=== PATIENT | female | born 1985 | race Caucasian/White ===

== ENCOUNTER 2019-03-14 11:09 | Observation (INO) | payer OTHER ==
[2019-03-14 12:01] LABS: PLATELET COUNT 236 10^3/uL (150-400)
--- NOTE | 2019-03-14 13:36 | OBPROG ---
Labor Progress Note Assessment/Plan: Assessment: 34 y/o G10 @ 38 6/7 weeks with labile BP, normal labs and elevated P:C Plan: I had an extensive discussion with patient and her about the criteria for Gestational HTN vs pre eclampsia and IOL. Her BP are overall normal as are her symptoms and labs. We have one objective elevated DBP from the office and 2 from 2 weeks of home measurements, but no elevated systolic measurements. She has a very unfavorable Perales's score and would be likely long and difficult IOL. I feel comfortable allowing pt to d/c home now to continue to monitor BP and symptoms. She knows to call over the weekend for any concerns. Follow-up @ [facility] on Sunday. 03/14/19 13:37 Subjective/Intrapartum Course: 03/14/19 13:31 Pt sent from the office to evaluate BP and labs for Gestational HTN or pre eclampsia. She denies ALMEIDA, scotomata, visual changes, RUQ pain. She has good FM , and min cramping, contractions. She has been monitoring her BP at home. Objective: 03/14/19 11:45 03/14/19 11:45 Uric Acid 4.1 mg/dL (2.5-6.8) 03/14/19 11:45 Total Bilirubin 0.4 mg/dL (0.1-1.4) 03/14/19 11:45 Conjugated Bilirubin 0.0 mg/dL (0.0-0.5) 03/14/19 11:45 Unconjugated Bilirubin 0.4 mg/dL (0.0-1.1) 03/14/19 11:45 AST 18 IU/L (14-46) 03/14/19 11:45 ALT 24 IU/L (9-52) 03/14/19 11:45 Lactate Dehydrogenase 386 IU/L (313-618) 03/14/19 11:45 BP here 111/67, 118/75, 117/68, 118/70, 120/72, One BP in the clinic immediately after cervical check 130/90 She has had 2 diastolic measurements at home 90's, no systolic BP > 130 - SVE Dilation (cm): 0 Effacement (%): Less than 50 Station: -3 Membranes: Intact - Contraction Pattern Assessment Current Contraction Pattern: Other (Specify) (none) - FHR Assessment Acevedo FHR (bpm): 130 FHR Pattern Variability: Moderate FHR Category: 1 - AP Antepartum Course: 03/14/19 13:36 + CF carrier, is negative some elevated BP 130/80 and P:C ratio > 0.3 Oxytocin Orders Assessment - Pre-Induction/Augmentation Assessment Gestational Age: 38 week(s) and 6 day(s) ICD10 Worksheet Patient Problems: Problems Problem Status Onset Elevated BP without diagnosis of hypertension Acute - ICD10 Problem Qualifiers (1) Elevated BP without diagnosis of hypertension
== END 2019-03-14 13:00 | disposition home or self-care (01) ==
LOC: FLD 11:09
PROVIDERS: ADMIT Obstetrics & Gynecology; ATTEND Obstetrics & Gynecology
DX: O26.893 Other specified pregnancy related conditions, third trimester (principal); R03.0 Elevated blood-pressure reading, without diagnosis of hypertension; Z3A.38 38 weeks gestation of pregnancy

== ENCOUNTER 2019-03-24 18:05 | Inpatient (IN) | payer OTHER ==
[2019-03-24] MEDS ORDERED: LIDOCAINE 1% 300 MG/30 ML SDV SC PRN (18:32)
[2019-03-24] MEDS ORDERED: EPSOM SALT 454 GM TP PRN (18:32)
[2019-03-24] MEDS ORDERED: IBUPROFEN 600 MG TAB PO PRN (18:32)
[2019-03-24] MEDS ORDERED: OXYTOCIN/RINGERS LACTATE 1,000 ML IV PRN (18:32)
[2019-03-24] MEDS ORDERED: AMMONIA AROMATIC 1 EACH AMP IH PRN (18:32)
[2019-03-24] MEDS ORDERED: TERBUTALINE SULFATE 1 MG/ML VIAL IV PRN (18:32)
[2019-03-24] MEDS ORDERED: OLIVE OIL 118 ML BTL MISC PRN (18:32)
[2019-03-24] MEDS ORDERED: LR 1,000 ML IV PRN (18:32)
[2019-03-24] MEDS ORDERED: MISOPROSTOL 200 MCG TAB PO PRN (18:32)
--- NOTE | 2019-03-24 19:38 | GHP ---
[f rep st] PREOP HISTORY AND PHYSICAL DATE OF ADMISSION: 03/24/2019 This is an admission history and physical Ms Katharine Blair 3 minute was documented perez dictating date of admission and dictation is 03/24/2019. ADMITTING DIAGNOSIS: Intrauterine at 40 and 2/7 weeks' gestation with spontaneous rupture of membranes and prodromal labor. HISTORY OF PRESENT ILLNESS: Katharine is a 34-year-old, 1, para 0, with a last menstrual period of 06/15/18 and EDC of 03/22/2019, confirmed by an 8- week ultrasound. She has had good care at [facility] since registration at 8 weeks' gestation. She has had a relatively uncomplicated course. She had an episode of slightly elevated blood pressures in the 130s over 80s on a couple occasions at home at 38 and 6. However, labs were negative, she was asymptomatic. And followup blood pressures have been stable. Blood pressure today is 130/80. She had a routine examination in the office by Dr. Mejia and she was found to be 1 cm, 80%, -2 and cephalic. He performed membrane sweep and patient felt a gush of fluid afterwards, which has continued over the last several hours. That examination was at approximately 2: 15 this afternoon. She has had multiple gushes of fluid soaking multiple pads with clear fluid. She has had increased cramping and some contractions since then, but no active labor contractions. PHYSICAL EXAMINATION: Today, blood pressure again is 130s over 80s. heart tones are 140s and reactive, moderate variability, category 1. She has irritable contractions maybe every 6 minutes. Cervix is 1, 80%, -2, cephalic and she is grossly ruptured. OTHER RISK FACTORS: She was found to be a CF carrier. Father of the baby is negative, and she had a small abnormality on her left ovary hypoechoic area. She does have a history of a dermoid removal on that side, and it has been followed and has been stable. Other than that, normal ultrasounds in this , normal laboratory evaluation, and she has progressed to 40 and 2/7 weeks. PAST OBSTETRICAL HISTORY: The patient is G1, P0. First . PAST GYNECOLOGICAL HISTORY: Menarche age 14. Irregular intervals. LMP of June 15, 2018. She did have a left dermoid cyst removed in 2014, laparoscopically. She had 1 abnormal Pap. Followups have been negative. No other history of any STDs or any gynecological problems. PAST MEDICAL HISTORY: Nonsignificant. No issues. SURGICAL HISTORY: Laparoscopic left ovarian dermoid cyst removal. That is all. ALLERGIES: She has no known drug allergies. MEDICATIONS: Include vitamins and DHA. LABORATORY DATA: She is A positive, antibody negative, RPR nonreactive, rubella immune, hepatitis negative, HIV negative. Again, cystic fibrosis carrier. Father of the baby is negative. Urine drug screen was negative. Pap was normal. Negative HPV. A urine culture was negative. Gonorrhea and chlamydia negative. Verify was negative. AFP was negative. One-hour GTT 115. GBS was negative. Varicella was immune. Parvovirus was checked and she is nonimmune. SOCIAL HISTORY: She is . She lives with her , Edgar. 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 She denies tobacco, alcohol, or drug use. FAMILY HISTORY: Sister has colitis. Maternal aunt had a brain tumor and a stroke. Father has heart disease. Maternal grandmother had cervical or uterine cancer. Maternal grandfather had Parkinson disease and Alzheimer's. OBJECTIVE: Today, blood pressures are stable. heart tones are 130s, reactive, moderate variability, category 1. She is odalis irregularly. Cervical exam was 1, 80%, -2 cephalic, grossly ruptured. ASSESSMENT AND PLAN: A 34-year-old, 1, para 0, at 40-2/7 weeks gestation with spontaneous rupture of membranes. We discussed a plan for cervical ripening and we will do oral Cytotec for cervical ripening and likely start Pitocin when her Perales score is more favorable, or she may kick into labor on her own. status is reassuring. We will do a set of PIH labs because of her history of some elevated blood pressures. GBS is negative. /[id number]/MODL MTDD
[2019-03-24 19:48] LABS: PLATELET COUNT 268 10^3/uL (150-400)
[2019-03-24] MEDS: MISOPROSTOL 50 MCG CAP PO SCH (21:57)
[2019-03-24] MEDS ORDERED: AMMONIA AROMATIC 1 EACH AMP IH ONE (22:26)
[2019-03-24] MEDS ORDERED: TERBUTALINE SULFATE 1 MG/ML VIAL ONE (22:26)
[2019-03-24] MEDS ORDERED: LIDOCAINE 1% 300 MG/30 ML SDV ONE (22:26)
[2019-03-24] MEDS ORDERED: OLIVE OIL 118 ML BTL MISC ONE (22:26)
[2019-03-24] MEDS ORDERED: OXYTOCIN 10 UNIT/ML VIAL ONE (22:26)
[2019-03-24] MEDS ORDERED: MISOPROSTOL 200 MCG TAB ONE (22:26)
[2019-03-25] MEDS: MISOPROSTOL 50 MCG CAP PO SCH ×3 (02:14→17:27)
[2019-03-25] MEDS ORDERED: fentaNYL 2MCG/ML/BUP 0.1% RTU 100 ML BAG EP ONE (03:44)
[2019-03-25] MEDS ORDERED: BUPIVACAINE 0.25% 10 ML SDV ONE (03:44)
[2019-03-25] MEDS ORDERED: PHENYLEPHRINE HCL 100 MCG/ML SYR ONE (03:44)
[2019-03-25] MEDS ORDERED: NALOXONE HCL 0.4 MG/ML INJ IVP PRN (04:14)
[2019-03-25] MEDS ORDERED: ONDANSETRON 4 MG/2 ML VIAL IVP PRN (04:14)
--- NOTE | 2019-03-25 04:17 | PREANESOB ---
Obstetric Pre-Anesthesia Info - General Info Proposed Procedure: cynthia : 1 Para: 0 MARGARITO: 03/22/19 Gestational Age: 40 week(s) and 2 day(s) - Info Status: Full Term FHR Pattern: Reassuring - Labor Status Labor Epidural: Proposed Anesthesia Allergies/Adverse Reactions: Allergy/AdvReac Type Severity Reaction Status Date / Time peanut Allergy Verified 03/24/19 18:35 Visit Medications: Generic Name Dose Route Start Last Admin Trade Name Freq PRN Reason Stop Dose Admin Ammonia (Aromatic Spirit) 1 each 03/24/19 18:32 Ammonia Aromatic IH 04/03/19 18:31 ONCE PRN Fainting Diphenhydramine HCl 25 - 50 mg 03/25/19 04:14 Benadryl Injection IVP 09/21/19 04:13 Q6HRS PRN Itching Lactated Ringer's 1,000 mls @ 0 mls/hr 03/24/19 18:32 Lr IV 03/25/19 18:31 PRN PRN SEE PROTOCOL CONDITIONS Protocol Per Protocol Oxytocin/Lactated Ringer's 1,000 mls @ 0 mls/hr 03/24/19 18:32 Pitocin 20 Units/Lr (Premix) IV PRN PRN Post bleeding As Directed Fentanyl/Bupivacaine HCl 100 mls @ 0 mls/hr 03/25/19 04:30 Fentanyl/Bupivacaine/Ns 2 Mcg/Ml 0.1% (Premix EP 04/04/19 04:29 CONT DUSTIN Protocol As Directed Lactated Ringer's 500 mls @ 0 mls/hr 03/25/19 04:30 Lr IV 09/21/19 04:29 CONT DUSTIN As Directed Ibuprofen 600 mg 03/24/19 18:32 Motrin PO ONCE PRN post , pain Lidocaine HCl 300 mg 03/24/19 18:32 Lidocaine Hcl 1% SC 09/20/19 18:31 ONCE PRN episiotomy Magnesium Sulfate 454 gm 03/24/19 18:32 Epsom Salt TP 09/20/19 18:31 Q1H PRN perineal discomfort Misoprostol 800 - 1,000 mcg 03/24/19 18:32 Cytotec PO 09/20/19 18:31 ONCE PRN Vaginal Atony/Bleeding Misoprostol 50 mcg 03/24/19 22:00 03/25/19 02:14 Cytotec PO 09/20/19 21:59 50 mcg Q4 DUSTIN Administration Naloxone HCl 0.4 mg 03/25/19 04:14 Narcan IVP 09/21/19 04:13 PRN PRN Respiratory depression [place] Oil 118 ml 03/24/19 18:32 Sweet Oil MISC 09/20/19 18:31 ONCE PRN perineal massage Ondansetron HCl 4 mg 03/25/19 04:14 Zofran IVP 03/26/19 04:13 Q4HRS PRN Nausea/Vomiting, Can't Take PO Terbutaline Sulfate 0.25 mg 03/24/19 18:32 Brethine IV 09/20/19 18:31 ONCE PRN Tachysystole Discontinued Medications Generic Name Dose Route Start Last Admin Trade Name Freq PRN Reason Stop Dose Admin Ammonia (Aromatic Spirit) Confirm 03/24/19 22:26 Ammonia Aromatic Administered 03/24/19 22:27 Dose 1 each IH .STK-MED ONE Bupivacaine HCl Confirm 03/25/19 03:44 Sensorcaine 0.25% Sdv Administered 03/25/19 03:45 Dose 10 ml .ROUTE .STK-MED ONE Fentanyl/Bupivacaine HCl Confirm 03/25/19 03:44 Fentanyl/Bupivacaine/Ns 2 Mcg/Ml 0.1% (Premix Administered 03/25/19 03:45 Dose 100 ml EP .STK-MED ONE Lidocaine HCl Confirm 03/24/19 22:26 Lidocaine Hcl 1% Administered 03/24/19 22:27 Dose 300 mg .ROUTE .STK-MED ONE Misoprostol Confirm 03/24/19 22:26 Cytotec Administered 03/24/19 22:27 Dose 1,000 mcg .ROUTE .STK-MED ONE [place] Oil Confirm 03/24/19 22:26 Sweet Oil Administered 03/24/19 22:27 Dose 118 ml MISC .STK-MED ONE Oxytocin Confirm 03/24/19 22:26 Pitocin Administered 03/24/19 22:27 Dose 40 unit .ROUTE .STK-MED ONE Phenylephrine HCl Confirm 03/25/19 03:44 Neosynephrine Administered 03/25/19 03:45 Dose 1,000 mcg .ROUTE .STK-MED ONE Terbutaline Sulfate Confirm 03/24/19 22:26 Brethine Administered 03/24/19 22:27 Dose 1 mg .ROUTE .STK-MED ONE - Anesthesia History Response to Local Anesthetics: Normal Anesthesia & Operative History: No Prior Problems Family Anesthesia History: Negative - Vital Signs Height/Weight (Nursing): Height 170.18 cm Weight 96.615 kg - Focused Exam Neck exam: FROM Mallampati Score: Class 2 Mouth exam: normal dental/mouth exam Pulmonary: no respiratory distress Cardiovascular: regular rate and rhythym Labs: 03/24/19 19:25 Patient ABO/Rh A POSITIVE 03/24/19 19:25 - Plan Consent Signed and on Chart: Yes Patient/Guardian Understands and Agrees to Plan: Yes Urgent/Emergent Case: Alexys edwards completed preop but documented later for safe timely pt care
[2019-03-25] MEDS ORDERED: LR 500 ML IV SCH (04:30)
[2019-03-25] MEDS ORDERED: fentaNYL 2MCG/ML/BUP 0.1% RTU 100 ML EP SCH (04:30)
[2019-03-25] MEDS ORDERED: ACETAMINOPHEN 500 MG TAB ONE (08:41)
[2019-03-25] MEDS ORDERED: ACETAMINOPHEN 500 MG TAB PO ONE (08:56)
--- NOTE | 2019-03-25 09:54 | OBPROG ---
Labor Progress Note Assessment/Plan: Assessment: IUP at 40w3d SROM 14:15 on 03/24 GBS - FARHANA, s/p cervical ripening with cytotec -last dose 6a Plan: will begin pit at 10a 03/25/19 09:40 Subjective/Intrapartum Course: 03/25/19 09:43 Pt comfortable with FARHANA. Disc with pt/Edgar about plan for today. Excited about exam 4/100/0. Disc possible cord compression with length of time with ROM - less fluid now and slightly blood tinged. Low grade temp spont decreased but given 1 gm Tylenol. Objective: 03/24/19 19:25 Patient ABO/Rh A POSITIVE 03/24/19 19:25 - SVE Dilation (cm): 4 Effacement (%): 100 Station: 0 Membranes: SROM (at 14:15) Amniotic Fluid Color: Clear (blood tinged) - Contraction Pattern Assessment Current Contraction Pattern: Irregular (q 3-6 min) - FHR Assessment Acevedo FHR (bpm): 130 FHR Pattern Variability: Moderate FHR Category: 1 - AP Antepartum Course: 03/25/19 09:55 mild elev B/P 130/80-90 at 37w6, eval labs all neg, p/c .4. PNC otherwise uncompl Oxytocin Orders Assessment - Pre-Induction/Augmentation Assessment Gestational Age: 40 week(s) and 2 day(s) ICD10 Worksheet Patient Problems: Problems Problem Status Onset Delayed delivery after SROM (spontaneous rupture of membranes) Acute Elevated BP without diagnosis of hypertension Acute - ICD10 Problem Qualifiers (1) Delayed delivery after SROM (spontaneous rupture of membranes) (2) Elevated BP without diagnosis of hypertension
[2019-03-25] MEDS ORDERED: OXYTOCIN/RINGERS LACTATE 500 ML IV SCH (10:00)
[2019-03-25] MEDS ORDERED: LR 500 ML IV PRN (10:00)
--- NOTE | 2019-03-25 12:13 | OBPROG ---
Labor Progress Note Assessment/Plan: Assessment: IUP at 40w3d SROM 14:15 on 03/24 GBS - FARHANA, now on pit at 3 mu/min variables notedd Plan: pitocin, and now with IUPC for amnioinfusion 03/25/19 09:40 03/25/19 12:00 Subjective/Intrapartum Course: 03/25/19 09:43 Pt comfortable with FARHANA. Disc with pt/Edgar about plan for today. Excited about exam 4/100/0. Disc possible cord compression with length of time with ROM - less fluid now and slightly blood tinged. Low grade temp spont decreased but given 1 gm Tylenol. 03/25/19 12:13 Pt comfortable and resting. No pressure but hits FARHANA button about 30 min. Disc IUPC and pt/husb agree. Disc some variables and likely low fluid contributing. IUPC placed without prob and cx 5-6/100/0. will begin amnioinfusion but just shifting to right side also helped. 03/25/19 12:15 Objective: 03/24/19 19:25 Patient ABO/Rh A POSITIVE 03/24/19 19:25 - SVE Dilation (cm): 5 (5-6) Effacement (%): 100 Station: 0 Membranes: SROM (at 14:15) Amniotic Fluid Color: Clear (blood tinged) - Contraction Pattern Assessment Current Contraction Pattern: Regular (q 2-3 min on pit 3 mu/min, after IUPC ctxns appear adeq) - FHR Assessment Acevedo FHR (bpm): 130 FHR Pattern Variability: Moderate FHR Category: 1 (currently cat I but was II with variables - still with good variability 20 min ago) - Procedures Non-surgical Procedures: IUPC (placed without probs. Needed to break forebag) - AP Antepartum Course: 03/25/19 09:55 mild elev B/P 130/80-90 at 37w6, eval labs all neg, p/c .4. PNC otherwise uncompl Oxytocin Orders Assessment - Pre-Induction/Augmentation Assessment Gestational Age: 40 week(s) and 2 day(s) ICD10 Worksheet Patient Problems: Problems Problem Status Onset Delayed delivery after SROM (spontaneous rupture of membranes) Acute - ICD10 Problem Qualifiers (1) Delayed delivery after SROM (spontaneous rupture of membranes)
--- NOTE | 2019-03-25 15:31 | OBDEL ---
Info Type: Vaginal Presentation at Delivery: Vertex L&D Analgesia/Anesthesia Type: Epidural GBS+: No Intrapartum Medications: Generic Name Dose Route Start Last Admin Trade Name Freq PRN Reason Stop Dose Admin Fentanyl/Bupivacaine HCl 100 mls @ 0 mls/hr 03/25/19 04:30 03/25/19 10:48 Fentanyl/Bupivacaine/Ns 2 Mcg/Ml 0.1% (Premix EP 04/04/19 04:29 100 mls CONT DUSTIN Administration Protocol As Directed Oxytocin/Lactated Ringer's 500 mls @ 0 mls/hr 03/25/19 10:00 03/25/19 10:14 Pitocin 30 Units/Lr (Premix) IV 09/21/19 09:59 500 mls CONT DUSTIN Administration Protocol Per Protocol Misoprostol 50 mcg 03/24/19 22:00 03/25/19 06:07 Cytotec PO 09/20/19 21:59 50 mcg Q4 DUSTIN Administration Discontinued Medications Generic Name Dose Route Start Last Admin Trade Name Freq PRN Reason Stop Dose Admin Acetaminophen 1,000 mg 03/25/19 08:56 03/25/19 09:00 Tylenol PO 03/25/19 08:57 1,000 mg ONCE ONE Administration - Hospital Course Intrapartum: 03/25/19 09:43 Pt comfortable with FARHANA. Disc with pt/Edgar about plan for today. Excited about exam 4/100/0. Disc possible cord compression with length of time with ROM - less fluid now and slightly blood tinged. Low grade temp spont decreased but given 1 gm Tylenol. 03/25/19 12:13 Pt comfortable and resting. No pressure but hits FARHANA button about 30 min. Disc IUPC and pt/husb agree. Disc some variables and likely low fluid contributing. IUPC placed without prob and cx 5-6/100/0. will begin amnioinfusion but just shifting to right side also helped. 03/25/19 12:15 Indications for Delivery: SROM Vaginal Delivery - Delivery Provider Delivery Physician/CNM: Manuela Torres - Labor and Delivery Onset of Contractions Date: 03/24/19 Onset of Contractions Time: 22:30 Onset of Contractions Type: Augmented Rupture of Membranes Date: 03/24/19 Rupture of Membranes Time: 14:15 Rupture of Membranes Type: Spontaneous Amniotic Fluid Color: Clear (blood tinged) Dilation Complete Date: 03/25/19 Dilation Complete Time: 14:05 Placenta Delivery Date: 03/25/19 Placenta Delivery Time: 15:05 Total Hours of Labor: 16 Non-surgical Procedures: IUPC (placed without probs. Needed to break forebag) Laceration: 1st Degree (right hymenal) Repair: Other (Specify) (none needed) Vaginal Sponge Count Correct: Yes Vaginal Needle Count Correct: Yes Vaginal Sweep Performed: Yes EBL: 400 Delivery Events: Nuchal Cord (x1 tight and cut on perineum) - Medications Labor Augmentation/Induction Methods Used: Pitocin, Prostin (cytotec 50 mcg through night.) Labor Augmentation/Induction Indication: Inadequate Contraction Frequency, Inadequate Contraction Strength Data MARGARITO: 03/22/19 Gestational Age: 40 week(s) and 3 day(s) Acevedo Delivery Date: 03/25/19 Delivery Time: 14:55 Sex of : Male (Sarah Ness) Score (1 Min): 8 Score (5 Min): 8 ICD10 Worksheet Patient Problems: Problems Problem Status Onset (spontaneous vaginal delivery) Acute Delayed delivery after SROM (spontaneous rupture of membranes) Acute - ICD10 Problem Qualifiers (1) Delayed delivery after SROM (spontaneous rupture of membranes)
[2019-03-25] MEDS: ACETAMINOPHEN 325 MG TAB PO PRN (21:18)
[2019-03-25] MEDS: IBUPROFEN 600 MG TAB PO PRN (21:19)
[2019-03-26] MEDS: IBUPROFEN 600 MG TAB PO PRN ×3 (05:05→18:29)
[2019-03-26] MEDS: ACETAMINOPHEN 325 MG TAB PO PRN ×3 (05:06→18:29)
--- NOTE | 2019-03-26 14:00 | OBPP ---
Progress Note Assessment/Plan: Assessment: ppd# 1 s/p rh+/RI breast feeding uncomplicated post course Plan: 03/26/19 13:57 Subjective/ Course: 03/26/19 13:58 patient is doing well. pain is well controlled. normal lochia. denies headache and changes in vision. breast feeding is going well. no concerns. blood pressures stable. Objective: 03/26/19 06:05 Patient ABO/Rh A POSITIVE 03/24/19 19:25 Temp Pulse Resp BP Pulse Ox 36.5 C 88 16 119/84 H 03/26/19 08:00 03/26/19 08:00 03/26/19 08:00 03/26/19 08:00 Physical Exam - Physical Exam Neck: non-tender, full range of motion, supple Respiratory: chest non-tender, lungs clear, normal breath sounds Cardiac/Chest: normal peripheral pulses, regular rate, rhythm Abdomen: normal bowel sounds, non-tender, other (fundus firm and non tender) Extremities: normal range of motion, non-tender, normal inspection, normal capillary refill Skin: normal color, warm/dry Neuro/Psych: no motor/sensory deficits, alert, normal mood/affect, oriented x 3
[2019-03-27] MEDS: ACETAMINOPHEN 325 MG TAB PO PRN ×2 (00:33→06:19)
[2019-03-27] MEDS: IBUPROFEN 600 MG TAB PO PRN ×2 (00:34→06:19)
[2019-03-27 11:18] VITALS: BP 110/73
--- NOTE | 2019-03-27 14:37 | OBGCSDC ---
General Delivery Information - General Info : 1 Para: 1 Abortions: 0 Type: Vaginal L&D Analgesia/Anesthesia Type: Epidural Admission Date: 03/24/19 Labs: Patient ABO/Rh A POSITIVE 03/24/19 19:25 Hct 35.5 % (38.0-47.0) L 03/26/19 06:05 - Hospital Course Antepartum: 03/25/19 09:55 mild elev B/P 130/80-90 at 37w6, eval labs all neg, p/c .4. PNC otherwise uncompl Intrapartum: 03/25/19 09:43 Pt comfortable with FARHANA. Disc with pt/Edgar about plan for today. Excited about exam 4/100/0. Disc possible cord compression with length of time with ROM - less fluid now and slightly blood tinged. Low grade temp spont decreased but given 1 gm Tylenol. 03/25/19 12:13 Pt comfortable and resting. No pressure but hits FARHANA button about 30 min. Disc IUPC and pt/husb agree. Disc some variables and likely low fluid contributing. IUPC placed without prob and cx 5-6/100/0. will begin amnioinfusion but just shifting to right side also helped. 03/25/19 12:15 : 03/26/19 13:58 patient is doing well. pain is well controlled. normal lochia. denies headache and changes in vision. breast feeding is going well. no concerns. blood pressures stable. 03/27/19 14:38 S) Pt doing well, reports min pain and bleeding. she is ambulating and voiding without difficulty. She is . She desires discharge home today. O) VSS, afebrile constitutional: WNF, A&Ox3 HEENT: normocephalic, atraumatic, supple Heart: RRR, No murmur Chest: CTA-B Breasts: soft, nontender, not engorged, nipples normal/intact Abdomen: Soft, nontender Uterus: Firm at U-2 Lochia: Minimal rubra Perineum: Intact, healing well Extremities: Trace edema, and negative Kamla's sign Neuro: Grossly normal A) 34-year-old S/P PPD#2 P) Discharge home today Continue Pelvic rest x6wks Discussed danger signs (infection, preeclampsia, depression, heavy bleeding, etc ) RTO in 4/6 weeks Vaginal - Delivery Provider Delivery Physician/CNM: Manuela Torres - Diagnosis Labor: Augmented Rupture of Membranes Type: Spontaneous Amniotic Fluid Color: Clear (blood tinged) Laceration: 1st Degree (right hymenal) Repair: Other (Specify) (none needed) Delivery Events: Nuchal Cord (x1 tight and cut on perineum) - Procedures Non-surgical Procedures: IUPC (placed without probs. Needed to break forebag) - Delivery Non-surgical Procedures: IUPC (placed without probs. Needed to break forebag) EBL: 400 [place] Data MARGARITO: 03/22/19 Gestational Age: 40 week(s) and 5 day(s) Acevedo Delivery Date: 03/25/19 Delivery Time: 14:55 Sex of Infant: Male (Sarah Ness) Weight (gm): 3430 g Score (1 Min): 8 Score (5 Min): 8 Discharge Information - Discharge Information Condition: Good Instruction/Follow Up: Four Weeks, Six Weeks
== END 2019-03-27 15:18 | disposition home or self-care (01) | DRG 807 ==
LOC: FLD 18:05 → OBSVTOIN 18:34 → FOB 03-25 17:31
PROVIDERS: ADMIT Obstetrics & Gynecology; ATTEND Obstetrics & Gynecology
DX: O70.0 First degree perineal laceration during delivery (principal); Z37.0 Single live birth; Z3A.40 40 weeks gestation of pregnancy; O69.82X0 Labor and delivery complicated by other cord entanglement, without compression, not applicable or unspecified
CPT/HCPCS: J2370; J2590; J3105